=== PATIENT | female | born 1940 | race Caucasian/White ===

== ENCOUNTER 2017-10-28 12:49 | Outpatient (CLI) | payer MEDICARE, OTHER ==
--- NOTE | 2017-10-28 13:36 | XRay Report ---
RIGHT KNEE: Knee pain. Standing views are obtained. The bony architecture is intact without evidence of fracture or dislocation. No significant soft tissue abnormality is seen. IMPRESSION: Normal right knee.
== END 2017-10-28 12:50 | disposition home or self-care (01) ==
LOC: SPVIMAG 12:49
PROVIDERS: ATTEND Orthopaedic Surgery
DX: M25.561 Pain in right knee (principal)